=== PATIENT | male | born 1970 | race Caucasian/White ===

== ENCOUNTER 2024-12-10 13:33 | Outpatient (CLI) | payer BC, SELFPAY ==
--- OUTSIDE RECORDS SUMMARY | 2024-12-10 13:36 | XMS_ITS | Clinical Summary ---
Author Organization [facility] Address [address] [place] [address] Phone Care Team Providers Care Marketing Content Coordinator Name Role Phone Danii EDGE, Derick Primary Care Physician [phone] Conditions or Problems No information available. Medications No information available. Medications Administered No information available. Allergies, Adverse Reactions, Alerts No information available. Results No information available. Plan of Care No information available. Procedures No information available. Vital Signs No information available. Immunizations No information available. Advance Directives No information available.
--- OUTSIDE RECORDS SUMMARY | 2024-12-10 13:38 | XMS_ITS | Clinical Summary ---
Author Organization [facility] Address [address] [place] [address] Care Team Providers Care Community Health Agent Name Role Phone Marlo Simon MD Primary Care Provider [phone] Allergies No known active allergies Medications busPIRone (Buspar) 10 MG tablet Take 10 mg by mouth 1 (one) time each day. 02/18/2021 Active mercaptopurine (Purinethol) 50 MG tablet Take 50 mg by mouth 1 (one) time each day. 02/18/2021 Active certolizumab pegol (Cimzia) 2 X 200 MG/ML kit injection Inject 200 mg under the skin every 30 (thirty) days. Last dose 03/30/2021 Active omeprazole (PriLOSEC) [address] capsule Take 20 mg by mouth 1 (one) time each day. Do not crush or chew. Active oxyCODONE (Roxicodone) 5 MG immediate release tablet Take 1 tablet (5 mg total) by mouth every 8 (eight) hours if needed for moderate pain. 10 tablet 04/30/2021 Active methocarbamol (Robaxin) 500 MG tablet Take 1 tablet (500 mg total) by mouth every 6 (six) hours for 7 days. 28 tablet 04/30/2021 Active Active Problems Problem Noted Date Diagnosed Date Iron deficiency anemia due to chronic blood loss 04/26/2021 Crohn's disease involving terminal ileum 022 Immunizations Immunization Administration Dates Next Due [employer] COVID-19 Vaccine (Purple Cap) 12 + 02/01/2021 Family History Medical History Relation Name Comments Cancer Other Relation Name Status Comments Other Social History Tobacco Use Types Packs/Day Years Used Date Smoking Tobacco: Former Cigarettes 2 - 2018 Smokeless Tobacco: Former Alcohol Use Standard Drinks/Week Comments Yes 0 (1 standard drink = 0.6 oz pur e alcohol) socially PHQ-2 Answer Date Recorded Patient Health Questionnaire-2 Score 0 05/11/2021 Sex and Gender Information Value Date Recorded Sex Assigned at Male 02/23/2021 5:12 PM EST Legal Sex Male 8:52 AM EST Gender Identity Male 02/23/2021 5:12 PM EST Sexual Orientation Straight 02/23/2021 5: 12 PM EST Last Filed Vital Signs Vital Sign Reading Time Taken Comments Blood Pressure 124/78 05/11/2021 11:39 AM EDT Pulse 80 05/11/2021 11:39 AM EDT Temperature 36.1 C (96.9 F) 05/11/2021 11:39 AM EDT Respiratory Rate 16 04/30/2021 7:22 AM EDT Oxygen Saturation 96% 04/30/2021 7:22 AM EDT Inhaled Oxygen Concentration - - Weight 80 kg (176 lb 5.9 oz) 05/11/2021 11:39 AM EDT Height 177.8 cm (5' 10 ) 05/11/2021 11:39 AM EDT Body Mass Index 25.31 05/11/2021 11:39 AM EDT Plan of Treatment Health Maintenance Due Date Last Done Comments [facility]-Depression Screening 1970 [facility]-/Child/Adol SDOH Screenings 1970 [facility]- SDOH Screenings 1988 [facility]-Adult SDOH Screenings 1988 [facility]-DTaP,Tdap,and Td Vaccine s (1 - Tdap) 1989 [facility]-Hepatitis B Vaccines (1 of 3 - 19+ 3-dose series) 1989 CT Colonography 04/20/2015 Colonoscopy 04/20/2015 FIT-DNA 04/20/2015 FIT 04/20/2015 FOBT 04/20/2015 Sigmoidoscopy 04/20/2015 [facility]-Colorectal Cancer Screening 04/20/2015 [facility]-Pneumococcal Vaccine: 50 + Years (1 of 1 - PCV) 2020 [facility]-Zoster Vaccines (1 of 2) 2020 [id number] Vaccine ( season) 2024 02/01/2021, 06/11/2020, 05/20/2020 [facility]-Influenza Vaccine (#1) 2024 HPV Vaccines Aged Out No longer eligi ble based on patient's age to complete this topic [facility]-HIB Vaccines Aged Out No longer e ligible based on patient's age to complete this topic [facility]-Hepatitis A Vaccines Aged Out No longer eligible based on patient's age to complete this topic [facility]-IPV Vaccines Aged Out No longer e ligible based on patient's age to complete this topic [facility]-Rotavirus Vaccines Aged Out No lo nger eligible based on patient's age to complete this topic Insurance ANTH Advance Directives * Full Code (Latest Code Status on File) Date Activated Date Inactivated Comments 04/25/2021 10:40 AM 04/30/2021 8:13 PM Question Answer Comments Patient has decision-making capacity? Yes Care Teams Community Health Agent Relationship Specialty Start Date End Date Marlo Simon MD [address] [place] [address] [place] [address] PCP - General 04/25/21
--- OUTSIDE RECORDS SUMMARY | 2024-12-10 13:38 | XMS_ITS | Clinical Summary ---
Author Organization [employer] ([place], [place], [place], [place], [place]) Address [address] [place] [address] Care Team Providers Care Radiology Director Name Role Phone Aurora JENKINS Md, Marlo EDGE Primary Care Provider [phone] Allergies No known active allergies Medications busPIRone (BUSPAR) 10 MG tablet Take 1 tablet (10 mg total) by mouth daily. Active colestipoL (COLESTID) 1 gram tablet Take 1 tablet (1 g total) by mouth nightly. Active omeprazole (PriLOSEC) 20 MG capsule Take 1 capsule (20 mg total) by mouth daily. Active mercaptopurine (PURINETHOL) 50 mg tablet Take 1 tablet (50 mg total) by mouth daily. Active Active Problems Problem Noted Date Diagnosed Date Regional enteritis of small intestine with large intestine 07/26/2022 Social History Tobacco Use Types Packs/Day Years Used Date Smoking Tobacco: Never Smokeless Tobacco: Never Tobacco Cessation:Counseling Given: Not Answered Alcohol Use Standard Drinks/Week Comments Yes 0 (1 standard drink = 0.6 oz pur e alcohol) OCCASSIONAL Food Insecurity Answer Date Recorded Food run out past 12 months Not on file 02/05 Food did not last past 12 months Not on file 02/23/2023 Employment Answer Date Recorded Help finding and keeping a job Not on file 0 02/23/2023 Family and Community Support Answer Michael e Recorded Help with Day to Day Activities Not on file 02/23/2023 Feeling Lonely or Isolated Not on file 02/23 Educational Attainment Answer Date You rded Speak language other than Kinyarwanda at home Not on file 02/23/2023 Want help with school or training Not on file 02/23/2023 Substance Use Answer Date Recorded Used prescription meds for non-medical reasons N ot on file 02/23/2023 Used illegal drugs past 12 months Not on file 02/23/2023 Sex and Gender Information Value Date Recorded Sex Assigned at Male 08/02/2021 7:03 PM CDT Legal Sex Male 7:03 PM CDT Gender Identity Male 08/02/2021 7:03 PM CDT Sexual Orientation Not on file Last Filed Vital Signs Vital Sign Reading Time Taken Comments Blood Pressure 134/83 07/26/2022 4:07 PM EDT Pulse 65 07/26/2022 4:07 PM EDT Temperature 36.8 C (98.3 F) 07/26/2022 1:39 PM EDT Respiratory Rate 18 07/26/2022 1:39 PM EDT Oxygen Saturation 96% 07/26/2022 1:39 PM EDT Inhaled Oxygen Concentration - - Weight 88.5 kg (195 lb) 07/26/2022 1:39 PM EDT Height 177.8 cm (5' 10 ) 07/26/2022 1:39 PM EDT Body Mass Index 27.98 07/26/2022 1:39 PM EDT Plan of Treatment Health Maintenance Due Date Last Done Comments CT Colonography 1970 Colonoscopy 1970 Colorectal Cancer Screening 1970 FOBT/FIT 1970 Fit-DNA (Cologuard) 1970 Sigmoidoscopy 1970 Depression Screening (12+) 1982 HIV Screening 1985 Hepatitis C Screening 1988 DTAP/TDAP/TD VACCINES (1 - Tdap) 1989 Lipid Panel 2005 Pneumococcal 50+ years (1 of 1 - PCV) 2020 Shingles Vaccine (Zoster) (1 of 2) 2020 Tobacco Cessation Counseling and Screening (12+) 07/27/2023 07/26/2022 COVID-19 VACCINE (4 - season) 2024 02/01/2021, 06/11/2020, 05/20/2020 Influenza Vaccine (#1) 2024 11/04/2020 Insurance BLUE CROSS/BLUE SHIELD Care Teams Radiology Director Relationship Specialty Start Date End Date Aurora JENKINS Md, MD Marlo [address] [address] PCP - General Gastroenterology 05/18/22
--- OUTSIDE RECORDS SUMMARY | 2024-12-10 13:38 | XMS_ITS | Encounter Summary ---
Author Organization [employer] ([place], [place], [place], [place], [place]) Address [address] [place] [address] Care Team Providers Care Chief Psychologist Name Role Phone Marlo Simon II, Md, MD Primary Care Provider [phone] Encounter Details Date Type Department Care Team (Late st Contact Info) Description 05/02/2022 Outside Orders [facility] Central Scheduling [address] [place] [address] Aurora JENKINS Md, MD Marlo [address] [address] Social History Tobacco Use Types Packs/Day Years Used Date Smoking Tobacco: Never Assessed Sex and Gender Information Value Date Recorded Sex Assigned at Male 08/02/2021 7:03 PM CDT Legal Sex Male 7:03 PM CDT Gender Identity Male 08/02/2021 7:03 PM CDT Sexual Orientation Not on file documented as of this encounter Plan of Treatment Not on file documented as of this encounter Visit Diagnoses Not on filedocumented in this encounter Care Teams Chief Psychologist Relationship Specialty Start Date End Date Marlo Simon II, Md, MD [address] [address] PCP - General Gastroenterology 05/18/22 documented as of this encounter
--- OUTSIDE RECORDS SUMMARY | 2024-12-10 13:38 | XMS_ITS | Referral Summary ---
Author Organization [employer] ([place], [place], [place], [place], [place]) Address [address] [place] [address] Care Team Providers Care Bookkeeping Teacher Name Role Phone Aurora JENKINS Md, Marlo EDGE Primary Care Provider [phone] Allergies No known active allergies Medications busPIRone [...] Date You rded Speak language other than Czech at home Not on file 02/23/2023 Want [...] 07/26/2022 1:39 PM EDT Plan of Treatment Not on file Insurance BLUE CROSS/BLUE SHIELD Care Teams Bookkeeping Teacher Relationship Specialty Start Date End Date Aurora JENKINS Md, MD Marlo [address] [address] PCP - General Gastroenterology 05/18/22
--- OUTSIDE RECORDS SUMMARY | 2024-12-10 13:38 | XMS_ITS | Encounter Summary ---
Author Organization [employer] ([place], [place], [place], [place], [place]) Address [address] [place] [address] Care Team Providers Care Work Environment Safety Inspector Name Role Phone Marlo Simon II, Md, MD Primary Care Provider [phone] Reason for Referral * Ultrasound (Routine) - Closed Specialty Diagnoses / Procedures Referred By Contac t Referred To Contact Diagnoses Abnormal liver function Procedures Ultrasound liver Aurora JENKINS Md, MD Marlo [address] [address] Phone: tel: fax: Referral ID Status Reason Start Date Expiration Date Visits Re quested Visits Authorized [id number] Closed 05/02/2022 10/29/2022 1 1 Encounter Details Date Type Department Care Team (Late st Contact Info) Description 05/02/2022 Outside Orders [facility] Central Scheduling [address] [place] [address] Aurora JENKINS Md, MD Marlo [address] [address] Abnormal liver function (Primary Dx) Social History Tobacco Use Types Packs/Day Years Used Date Smoking Tobacco: Never Assessed Sex and Gender Information Value Date Recorded Sex Assigned at Male 08/02/2021 7:03 PM CDT Legal Sex Male 7:03 PM CDT Gender Identity Male 08/02/2021 7:03 PM CDT Sexual Orientation Not on file documented as of this encounter Plan of Treatment Not on file documented as of this encounter Results * Ultrasound liver (05/18/2022 9:05 AM EDT) Anatomical Region Laterality Modality Abdomen Ultrasound 05/18/2022 10:0 6 AM EDT Impressions 05/18/2022 10:07 AM EDT Fatty infiltration of the liver. Otherwise unremarkable. Images reviewed, interpreted, and dictated by Dr. Philip Rojas. Transcribed by Herbert Quintanilla (Dottie). Narrative 05/18/2022 10:07 AM EDT RIGHT UPPER QUADRANT ULTRASOUND HISTORY: Abnormal LFTs. PROCEDURE: Ultrasound images of the right upper quadrant were obtained. Hepatic Doppler evaluation performed. FINDINGS: Limited images of the pancreas are obscured by bowel gas . The liver parenchyma is fatty infiltrated. The gallbladder is well visualized and the wall appears normal . There are no gall stones . The common duct is normal . Limited images of the right kidney are unremarkable . Color and spectral Doppler evaluation shows patent portal and hepatic veins. There is normal directional flow. Procedure Note Ck Rojas MD - 05/18/2022 RIGHT UPPER QUADRANT ULTRASOUND HISTORY: Abnormal LFTs. PROCEDURE: Ultrasound images of the right upper quadrant were obtained. Hepatic Doppler evaluation performed. FINDINGS: Limited images of the pancreas are obscured by bowel gas . The liver parenchyma is fatty infiltrated. The gallbladder is well visualized and the wall appears normal . There are no gall stones . The common duct is normal . Limited images of the right kidney are unremarkable . Color and spectral Doppler evaluation shows patent portal and hepatic veins. There is normal directional flow. IMPRESSION: Fatty infiltration of the liver. Otherwise unremarkable. Images reviewed, interpreted, and dictated by Dr. Philip Rojas. Transcribed by Herbert Quintanilla (R). Marlo Simon II, Md, MD [facility] US ORDERABLES Final Re sult documented in this encounter Visit Diagnoses Diagnosis Abnormal liver function- Primary Unspecified disorder of liver Abnormal liver function Unspecified disorder of liver documented in this encounter Care Teams Work Environment Safety Inspector Relationship Specialty Start Date End Date Aurora JENKINS Md, MD Marlo [address] [address] PCP - General Gastroenterology 05/18/22 documented as of this encounter
--- OUTSIDE RECORDS SUMMARY | 2024-12-10 13:38 | XMS_ITS | Clinical Summary ---
Author Organization [facility] Address [address] [place] [address] Care Team Providers Care Fitting Room Checker Name Role Phone Provider, No Known Primary Care Provider Unavail able Allergies No known active allergies Medications busPIRone (BUSPAR) 10 MG tablet Take 10 mg by mouth 3 (Three) Times a Day. Active mercaptopurine (PURINETHOL) 50 MG chemo tablet Take by mouth Daily. Active ferrous gluconate 324 (37.5 FE) MG tablet tablet Take by mouth Daily With Breakfast. Active Certolizumab Pegol (CIMZIA) 2 X 200 MG kit Inject under the skin. Active omeprazole (priLOSEC) 20 MG capsule TAKE 1 CAPSULE BY MOUTH IN THE MORNING FOR 30 DAYS 11 01/13/2019 Active Social History Tobacco Use Types Packs/Day Years Used Date Smoking Tobacco: Former Cigarettes 1.5 27 0 02/05/1990 - 02/05/2017 Smokeless Tobacco: Current Chew Tobacco Cessation:Ready to Q uit: No; Counseling Given: No Alcohol Use Standard Drinks/Week Comments Yes 0 (1 standard drink = 0.6 oz pur e alcohol) 1-2 beers/week Abuse Screen Answer Date Recorded Unsafe at Home or Work/School Not on file Feels Threatened by Someone? Not on file 09/2022 Does Anyone Keep You from Co ntacting Others or Doint Things Outside the Home? Not on file 11/12/2022 Physical Sign of Abuse Present Not on file 1 Housing Stability Answer Date Recorded Current Living Arrangements Not on file 09/2022 Potentially Unsafe Housing Conditions Not on oumar e 11/12/2022 Family and Community Support Answer Michael e Recorded Help with Day-to-Day Activities Not on file 11/12/2022 Lonely or Isolated Not on file 11/12/2022 Employment Answer Date Recorded Do you want help finding or keeping work or a dionicio b? Not on file 11/12/2022 Disabilities Answer Date Recorded Concentrating, Remembering, or Making Decisions Difficulty Not on file 11/12/2022 Doing Errands Independently Difficulty Not on fi le 11/12/2022 Education Answer Date Recorded Help with school or training? Not on file Preferred Language Not on file 11/12/2022 Sex and Gender Information Value Date Recorded Sex Assigned at Not on file Legal Sex Male 10:58 AM EDT Gender Identity Not on file Sexual Orientation Not on file Last Filed Vital Signs Vital Sign Reading Time Taken Comments Blood Pressure 118/78 01/16/2019 5:32 PM EST Pulse 75 01/16/2019 5:32 PM EST Temperature 37.1 C (98.7 F) 01/16/2019 5:32 PM EST Respiratory Rate 17 01/16/2019 5:32 PM EST Oxygen Saturation 97% 01/16/2019 5:32 PM EST Inhaled Oxygen Concentration - - Weight 89.1 kg (196 lb 6.4 oz) 01/16/2019 5:32 P M EST Height - - Body Mass Index - - Plan of Treatment Health Maintenance Due Date Last Done Comments TDAP/TD VACCINES (1 - Tdap) 1989 COLOGUARD 04/20/2015 COLON CANCER SCREENING 5 YEAR SIGMOIDOSCOPY 04/20/2015 COLONOSCOPY 04/20/2015 COLORECTAL CANCER SCREENING 04/20/2015 CT COLONOGRAPHY 04/20/2015 FECAL OCCULT BLOOD TEST 04/20/2015 FIT Testing (1 year) 04/20/2015 ANNUAL PHYSICAL 08/15/2016 HEPATITIS C SCREENING 08/15/2016 Pneumococcal Vaccine 50+ (1 of 1 - PCV) 2020 ZOSTER VACCINE (1 of 2) 2020 INFLUENZA VACCINE 09/05/[address] [place] [place] [address] HEALTH PLAN [facility] P[facility] Care Teams Fitting Room Checker Relationship Specialty Start Date End Date Provider, No Known [facility] [place] [address] PCP - General 08/15/16
[2024-12-10 13:59] LABS: Hematocrit 44.2 % (42.0-52.0); Hemoglobin 15.7 g/dL (14.1-18.0); Immature Granulocytes % 0.5 %; Mean Corpuscular HGB Conc 35.5 g/dL (31.8-35.4); Mean Corpuscular Hemoglobin 32.3 pg (27.0-31.2); Mean Corpuscular Volume 90.9 fl (80-94); Nucleated Red Blood Cells % 0 %; Platelet Count 297 K/mm3 (142-424); Red Blood Count 4.86 M/mm3 (4.60-6.20); Red Cell Distribution Width-SD 39.5 fL; White Blood Count 9.7 K/mm3 (4.8-10.8)
[2024-12-10 15:04] LABS: Alanine Aminotransferase 187 U/L (12-78); Albumin Level 4.4 g/dl (3.5-5.0); Albumin/Globulin Ratio 1.4 (1.1-1.8); Alkaline Phosphatase 93 U/L (38-126); Anion Gap 12.0 mEq/L (5-15); Aspartate Amino Transferase 93 U/L (17-59); Bilirubin,Total 0.8 mg/dl (0.2-1.3); Blood Urea Nitrogen 11 mg/dl (9-20); Calcium 9.5 mg/dl (8.4-10.2); Carbon Dioxide 26 mmol/L (22.0-30.0); Chloride 103 mmol/L (98-107); Creatinine,Serum 1.20 mg/dl (0.66-1.25); Estimated Glomerular Filt Rate 63 ml/min (>60); GFR (African American) 76 ML/MIN (>60); Globulin 3.1 g/dL (1.3-3.2); Glucose 88 mg/dl (74-100); Iron 167 ug/dL (49-181); Potassium 4.0 mmoL/L (3.5-5.1); Sodium 137 mmol/L (136-145); Total Protein,Serum 7.5 g/dl (6.3-8.2)
[2024-12-10 15:13] LABS: C-Reactive Protein 3.0 mg/L (0-4); Total Iron Binding Capacity 286 ug/dL (261-462)
[2024-12-10 15:20] LABS: 25-OH Vitamin D, Total 31.7 ng/mL (30-100)
[2024-12-10 15:40] LABS: Ferritin 285 ng/ml (17.9-464)
[2024-12-10 15:57] LABS: Vitamin B12 310 pg/mL (239-931)
== END 2024-12-10 23:59 | disposition home or self-care (01) ==
LOC: LAB 13:34
PROVIDERS: Visit Provider Nurse Practitioner Family
DX: K50.90 Crohn's disease, unspecified, without complications (principal)
CPT/HCPCS: 36415; 80053; 82306; 82607; 82728; 83540; 83550; 85025; 85651; 86140; 86480